=== PATIENT | male | born 1975 ===

== ENCOUNTER 2024-08-02 08:55 | Day surgery (SDC) | payer OTHER ==
[2024-08-01 08:15] LABS: HEMATOCRIT 41.2 % (39.0-48.0); HEMOGLOBIN 14.4 g/dL (13-16.00); MEAN CELL VOLUME 85.6 fL (80.0-100.00); PLATELET COUNT 220 K/uL (150-450); RED BLOOD COUNT 4.82 M/uL (4.00-6.00); RED CELL DISTRIBUTION WIDTH 13.6 % (11.5-14.5)
[2024-08-01 08:18] VITALS: BP 161/88
[2024-08-01 08:39] LABS: PH,URINE 7.5 (5.0-8.0); URINE APPEARANCE Clear; URINE BILIRRUBIN Negative (NEGATIVE); URINE BLOOD Negative; URINE COLOR Yellow; URINE GLUCOSE Negative (NEGATIVE); URINE KETONE Negative (NEGATIVE); URINE LEUKOCYTE Negative; URINE NITRATE Negative; URINE PROTEIN Negative (NEGATIVE); URINE UROBILINOGEN 0.2 E.U./dl
[2024-08-01 08:43] LABS: URINE RBC 3.8 uL (0.0-20.8)
[2024-08-01 08:58] LABS: ALBUMIN 3.7 gm/dL (3.4-5.0); BILIRUBIN TOTAL 0.41 mg/dL (0.3-1.2); CALCIUM 8.6 mg/dL (8.5-10.1); CREATININE SERUM 0.81 mg/dL (0.70-1.30); GFR 101.28; GLOBULINA 3.3 G/DL (2.4-3.5); POTASSIUM 3.42 mEq/L (3.5-5.1)
[2024-08-01 09:02] LABS: INR 0.96; PARTIAL THROMBOPLASTIN TIME 26.9 SECONDS (22.0-34.0); PROTHROMBIN TIME 10.5 SECONDS (9.0-11.5)
[2024-08-01 09:20] LABS: URINE BACTERIA 2.4 uL (0.0-1933); URINE EPITHELIAL CELLS 0.7 uL (0.0-38.8); URINE WBC 0.9 uL (0.0-23.2)
[~2024-08-02] VITALS: Ht 190.5 cm; Wt 122.5 kg
[~2024-08-02 08:55] MED LIST: ATACAND HCT 321 EACH PO; DILTIAZEM ER420 M1 PO
[2024-08-02] MEDS ORDERED: CEFAZOLIN SODIUM 1,000 MG VIAL ONE (13:52)
[2024-08-02] MEDS ORDERED: BUPIVACAINE HCL/MPF 0.5% 30ML VIAL ONE (15:13)
[2024-08-02] MEDS ORDERED: ISOPROPYL ALCOHOL 30 ML OUNCE TOP ONE (17:00)
[2024-08-02] MEDS ORDERED: SUGAMMADEX SODIUM 200 MG/2 ML VIAL IV ONE (17:27)
[2024-08-02] MEDS ORDERED: MORPHINE SULFATE 4 MG/ML VIAL IV ONE ×2 (18:20→18:50)
== END 2024-08-02 21:00 | disposition home or self-care (01) ==
LOC: CIR.AMB 08:55
PROVIDERS: ATTEND Orthopaedic Surgery Hand Surgery
DX: S52.531A Colles' fracture of right radius, initial encounter for closed fracture (principal); M24.531 Contracture, right wrist
CPT/HCPCS: 25609; 25118; 25280; L8699